=== PATIENT | female | born 1935 | race Caucasian/White ===

== ENCOUNTER 2018-10-30 10:54 | Inpatient (IN) | payer OTHER, BC ==
[~2018-10-30] VITALS: Ht 147.3 cm; Wt 51.7 kg
[2018-10-30] MEDS ORDERED: DILTIAZEM ER120 MG (11:06)
[2018-10-30] MEDS ORDERED: GLUMETZA500 MG (11:06)
[2018-10-30] MEDS ORDERED: LEVOXYL50 MCG (11:07)
[2018-10-30] MEDS ORDERED: LIPITOR20 MG (11:07)
[2018-10-30] MEDS ORDERED: VIVLODEX10 MG (11:07)
[2018-10-30] MEDS ORDERED: PEDIAPRED5 MG/5 ML (11:07)
[2018-10-30] MEDS ORDERED: LOSARTAN-HCTZ1 EAC2 (11:08)
[2018-10-30] MEDS ORDERED: ASPIR 8181 MG (11:09)
[2018-11-15] MEDS ORDERED: INTEGRA PLUS C1 EACH PO (14:21)
[2018-11-15] MEDS ORDERED: APETIGEN L790 MG/15 PO (14:21)
[2018-11-15] MEDS ORDERED: ELIQUIS2.5 MG PO (14:21)
[2018-11-15] MEDS ORDERED: LIPITOR40 MG PO (14:21)
[2018-11-15] MEDS ORDERED: CARTIA XT240 MG PO (14:21)
[2018-11-15] MEDS ORDERED: INTESTINEX680 M1 PO (14:21)
[2018-11-15] MEDS ORDERED: BENZONATATE100 MG PO (14:21)
[2018-11-15] MEDS ORDERED: LASIX20 MG PO (14:28)
== END 2018-11-15 15:42 | disposition home or self-care (01) | DRG 193 ==
LOC: ER 10:54 → SURH 20:33 → SEC-K 20:33 → SURH 22:51
PROVIDERS: ADMIT Internal Medicine
PROC: 4A033R1 Measurement of Arterial Saturation, Peripheral, Percutaneous Approach (ICD-10-PCS; 2018-10-30)
PROC: B246ZZZ Ultrasonography of Right and Left Heart (ICD-10-PCS; 2018-10-30)
PROC: BW28ZZZ Computerized Tomography (CT Scan) of Head (ICD-10-PCS; 2018-10-30)
PROC: BW24ZZZ Computerized Tomography (CT Scan) of Chest and Abdomen (ICD-10-PCS; principal; 2018-10-31)
PROC: B345ZZZ Ultrasonography of Bilateral Common Carotid Arteries (ICD-10-PCS; 2018-10-31)
PROC: 3E0F7GC Introduction of Other Therapeutic Substance into Respiratory Tract, Via Natural or Artificial Opening (ICD-10-PCS; 2018-10-31)
PROC: B54DZZZ Ultrasonography of Bilateral Lower Extremity Veins (ICD-10-PCS; 2018-11-01)
PROC: 0DBK8ZX Excision of Ascending Colon, Via Natural or Artificial Opening Endoscopic, Diagnostic (ICD-10-PCS; 2018-11-05)
PROC: 0DBN8ZX Excision of Sigmoid Colon, Via Natural or Artificial Opening Endoscopic, Diagnostic (ICD-10-PCS; 2018-11-05)
PROC: 0DBH8ZX Excision of Cecum, Via Natural or Artificial Opening Endoscopic, Diagnostic (ICD-10-PCS; 2018-11-05)
PROC: CW101ZZ Planar Nuclear Medicine Imaging of Abdomen using Technetium 99m (Tc-99m) (ICD-10-PCS; 2018-11-06)
PROC: 4A12X4Z Monitoring of Cardiac Electrical Activity, External Approach (ICD-10-PCS; 2018-11-13)
DX: J13 Pneumonia due to Streptococcus pneumoniae (principal); J80 Acute respiratory distress syndrome; J44.1 Chronic obstructive pulmonary disease with (acute) exacerbation; E27.1 Primary adrenocortical insufficiency; J90 Pleural effusion, not elsewhere classified; N17.8 Other acute kidney failure; D12.2 Benign neoplasm of ascending colon; D12.0 Benign neoplasm of cecum; D12.5 Benign neoplasm of sigmoid colon; J84.10 Pulmonary fibrosis, unspecified; Z79.4 Long term (current) use of insulin; D63.8 Anemia in other chronic diseases classified elsewhere; E78.00 Pure hypercholesterolemia, unspecified; E11.65 Type 2 diabetes mellitus with hyperglycemia; R44.1 Visual hallucinations; E86.0 Dehydration; Z79.52 Long term (current) use of systemic steroids; E11.319 Type 2 diabetes mellitus with unspecified diabetic retinopathy without macular edema; F17.218 Nicotine dependence, cigarettes, with other nicotine-induced disorders; I12.9 Hypertensive chronic kidney disease with stage 1 through stage 4 chronic kidney disease, or unspecified chronic kidney disease; E11.22 Type 2 diabetes mellitus with diabetic chronic kidney disease; N18.9 Chronic kidney disease, unspecified; E03.8 Other specified hypothyroidism; I48.0 Paroxysmal atrial fibrillation; Z79.01 Long term (current) use of anticoagulants

== ENCOUNTER 2019-09-10 14:59 | Emergency (ER) | payer OTHER, BC ==
[~2019-09-10] VITALS: Ht 157.5 cm; Wt 57.2 kg
[~2019-09-10 14:59] MED LIST: APETIGEN L790 MG/15 PO; ASPIR 8181 MG; BENZONATATE100 MG PO; CARTIA XT240 MG PO; DILTIAZEM ER120 MG; ELIQUIS2.5 MG PO; GLUMETZA500 MG; INTEGRA PLUS C1 EACH PO; INTESTINEX680 M1 PO; LASIX20 MG PO; LEVOXYL50 MCG; LIPITOR20 MG; LIPITOR40 MG PO; LOSARTAN-HCTZ1 EAC2; PEDIAPRED5 MG/5 ML; VIVLODEX10 MG
[2019-09-10] MEDS ORDERED: TUSNEL LIQUID178 ML PO (19:22)
[2019-09-10] MEDS ORDERED: DOLOGEN CAPLET1 EACH PO (19:22)
[2019-09-10] MEDS ORDERED: ZITHROMAX500 MG PO (19:22)
[2019-09-10] MEDS ORDERED: CLARITIN10 MG PO (19:22)
== END 2019-09-10 19:31 | disposition home or self-care (01) ==
LOC: ER 14:59
DX: B34.9 Viral infection, unspecified (principal)